=== PATIENT | female | born 1970 | race Caucasian/White ===

== ENCOUNTER 2016-07-22 03:29 | Emergency (ER) | payer OTHER ==
[~2016-07-22] VITALS: Ht 165.1 cm; Wt 59.1 kg
[2016-07-22 03:33] VITALS: BP 119/71; PULSE 54; RESP 16; O2SAT 99
--- NOTE | 2016-07-22 03:55 | ED.REPORT ---
HPI-Abd Pain F 40 and Over Date of Service Jul 22, 2016 ED Provider: Dr. Leigh Pt is an otherwise healthy 46 year old female who presents to the ED complaining of dysuria onset this morning. Pt c/o associated chills, increased urinary frequency and urgency, and flank pain bilaterally. She denies fever and diarrhea. The pt reports that she has had similar symptoms previously. Nursing Notes Stated Complaint: BLADDER INFECTION Chief Complaint: Female Abdominal Pain Nursing Notes Reviewed: Yes Allergies: Uncoded Allergies: LAMASIL (Allergy, Intermediate, HIVES, 07/22/16) SULFA (Allergy, Intermediate, HIVES, 07/22/16) Scheduled Cefuroxime Axetil (Cefuroxime) 500 Mg Tablet 500 MG PO BID Scheduled PRN Phenazopyridine (Phenazopyridine) 200 Mg Tablet 200 MG PO TID PRN PRN dysuria General Time Seen by MD: 03:55 Chief Complaint Dysuria Hx Obtained From: Patient Sudden in Onset?: No Onset Occurred: 1 - 4 hours ago Symptom Duration: Since onset Severity: Current: Moderate Severity: Maximum: Moderate Recent Healthcare: No recent doctor visit, No recent hospitalization Similar Sx Previous: Yes Past Medical History Past Medical History None reported Past Surgical History Hysterectomy Smoking History Unknown if Ever Smoker Social History Alcohol Use: Denies alcohol use Drug Use: Denies drug use Review of Systems Constitutional: Reports: Chills, Denies: Fever GI: Denies: Diarrhea Female: Reports: Dysuria, Flank pain, Urinary frequency, Urinary urgency Complete sys rev & neg: except as marked. Physical Exam Vital Signs Vital Signs (First) Date Time Temp Pulse Resp B/P Pulse Ox O2 Delivery O2 Flow Rate FiO2 07/22/16 03:33 35.9 54 16 119/71 99 Room Air Initial VS: Reviewed Head / Eyes: Atraumatic, Normocephalic, PERRL ENT: Mucous membranes moist, Conjunctiva normal, No scleral icterus Neck: Supple, Full range of motion Extremities: Vascular intact, Neuro intact Skin: Warm, Dry, No cyanosis Neurologic: Alert, Oriented, Nonfocal Psychiatric: Mood/affect normal, Behavior normal General/Constitutional: Awake, Alert, Well hydrated, Cooperative, Not toxic appearing Respiratory / Chest: Atraumatic, Breath sounds NL, Breath sounds = bilat Cardiovascular: Heart rate NL, Regular rhythm, Heart sounds NL Abdomen: Atraumatic, Soft, Non-tender Back: Atraumatic, Inspection NL, Full range of motion, No CVA tenderness Interpretation & Diagnostics Lab Results Interpretation Test 07/22/16 04:00 Urine Color [place] (YELLOW) Urine Appearance Clear (CLEAR,HAZY) Urine pH 6.5 (5.0-8.0) Urine Specific [place] 1.012 (1.003-1.035) Urine Protein mg/dL (NEG,TRACE) Urine Glucose (UA) Negativemg/dL (NEGATIVE) Urine Ketones Negativemg/dL (NEGATIVE) Urine Occult Blood Trace (NEGATIVE) Urine Nitrite (NEGATIVE) Urine Bilirubin (NEGATIVE) Urine Urobilinogen mg/dL (NORMAL) Urine Leukocyte Esterase Small (NEGATIVE) Urine RBC 0-2/hpf (0-2) Urine WBC 11-50/hpf (0-5) Urine Epithelial Cells Occasional/hpf (NONE-MOD) Urine Crystals None seen (NONE SEEN) Urine Bacteria None/hpf (NONE-FEW) Urine Hyaline Casts None/lpf (NONE) Urine Granular Casts None seen (NONE SEEN) Urine Waxy Casts None seen (NONE SEEN) Urine Red Blood Cell Casts None seen (NONE SEEN) Urine White Blood Cell Casts None seen (NONE SEEN) Urine Mucus None seen (None Seen) Urine Trichomonas None seen (NONE SEEN) Urine Yeast None (NONE SEEN) Urinalysis Comment Color interference Urine Culture Reflexed Indicated Re-Eval/Medical Decision Med Decision/Clinical Course 46-year-old with UTI symptoms and a positive urine, presents also with some flank pain bilaterally, chills and low-grade fever. She had previously been treated with nitrofurantoin with immediate recurrence upon stopping. Treated now with Ceftin by mouth. Peridium when necessary. Follow-up with PCP. Source of Hx: Old records Re-Evaluation/Progress : Time of Eval: 04:40 )( Re-Eval Abdomen: Soft, Non-tender Re-Evaluation/Progress Note: Pt rechecked. Informed pt of plan for discharge. Pt understands and agrees with plan for discharge. F/U instructions and RTER warnings given. All questions addressed. Counseled Regarding: Diagnosis, Need for follow-up, When/why to return to ED Discharge & Departure Primary Impression: Urinary tract infection Urinary tract infection type: site unspecified Hematuria presence: without hematuria Qualified Code: N39.0 - Urinary tract infection, site not specified Disposition: Home Discharge Condition All VS Reviewed: Yes Condition: Stable Additional Instructions: Ceftin twice daily for ten days. Drink plenty of fluids and maintain high urine flow. Pyridium three times daily for discomfort. Follow-up with your doctor in the office. Referrals: [facility] Scribe Attestation Portions of this note were transcribed by Siena Chavez. I, Dr. Leigh personally performed the history, physical exam and medical decision-making; I reviewed and confirmed the accuracy of the information in the transcribed note. Signed by: Barry Low, 07/22/16 and 05:00 copies to: [facility] Suraj Leigh MD Jul 22, 2016 03:55 Siena Lea Jul 22, 2016 04:11
[2016-07-22 04:18] LABS: APPEARANCE,URINE CLEAR (CLEAR,HAZY); COLOR,URINE ORANGE (YELLOW); OCCULT BLOOD,URINE TRACE (NEGATIVE); PH,URINE 6.5 (5.0-8.0)
[2016-07-22] MEDS ORDERED: PHEN-777 PO (04:32)
[2016-07-22] MEDS ORDERED: CEFU500T61 PO (04:32)
[2016-07-22 05:22] VITALS: BP 104/69; PULSE 54; RESP 16; O2SAT 98
== END 2016-07-22 05:24 | disposition home or self-care (01) ==
LOC: SED 03:29
DX: N39.0 Urinary tract infection, site not specified (principal); B95.7 Other staphylococcus as the cause of diseases classified elsewhere